=== PATIENT | female | born 1960 | race Hispanic/Latino ===

== ENCOUNTER 2017-12-21 14:03 | Emergency (ER) | payer SELFPAY ==
[~2017-12-21] VITALS: Ht 160 cm; Wt 68.0 kg
[2017-12-21] MEDS ORDERED: CYCLOBENZAPRINE HCL 10 MG TAB PO ONE (14:30)
[2017-12-21] MEDS ORDERED: TRAMADOL HCL 50 MG TAB PO ONE (14:30)
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
[2017-12-21 17:10] VITALS: BP 141/77
== END 2017-12-21 17:10 | disposition home or self-care (01) ==
LOC: ER 14:03
DX: S16.1XXA Strain of muscle, fascia and tendon at neck level, initial encounter (principal); S39.012A Strain of muscle, fascia and tendon of lower back, initial encounter; V43.52XA Car driver injured in collision with other type car in traffic accident, initial encounter; Y93.89 Activity, other specified; Y92.410 Unspecified street and highway as the place of occurrence of the external cause
CPT/HCPCS: 72040; 72100; 99284

== ENCOUNTER 2019-05-08 19:15 | Observation (INO) | payer SELFPAY ==
[~2019-05-08] VITALS: Ht 157.5 cm; Wt 72.1 kg
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
--- OUTSIDE RECORDS SUMMARY | 2019-05-08 19:18 | XMS REPORT | Encounter Summary ---
Author Organization Unknown Address [address] [place] [address] Phone [phone] Care Team Providers Care Whip Sawyer Name Role Phone Beto Hill MD 3 [phone] Reason for Visit Angina pectoris; Hypertensive disorder Instructions 1. Hypertensive disorder 2. Body mass index 25-29 - overweight learning about healthy weight Discussion Note continue amlodipine,will refer to cardiology Plan of Care Patient Instructions Please follow up with your doctor in . Follow up with any specialists that we discussed during your visit today. If you need help getting your medications filled, our [facility] can sync medication refills, deliver within a 10 mile radius, or [facility] overnight at no additional cost. Please watch for warning symptoms that may occur: *fever *redness/oozing at surgical site *shortness of breath *uncontrolled pain *unexpected weight gain/loss *high or low blood pressure *chest pain *confusion *any other health concerns Call us at if you experience these symptoms. In addition to these services our office offers home health care social worker services, home health options and chronic conditions management. Please reach out to us with your particular needs. Evening and Wednesday clinic hours are available if you have problems. If you have problems after hours, you can reach the [facility] physician social contact worker at . Reminders Provider Appointments None recorded. Lab None recorded. Referral None recorded. Procedures None recorded. Surgeries None recorded. Imaging None recorded. Medications Name Start Date Aleve 1 TAB EVERY DAY PRN Dulera 100 mcg-5 mcg/actuation HFA aerosol inhaler Inhale 2 puffs twice a day by inhalation route as needed. lisinopril 5 mg tablet Take 1 tablet every day by oral route. Nitrostat 0.[address] 1 tablet as needed by sublingual route. 06/22/2018 ProAir HFA 90 mcg/actuation aerosol inhaler INHALE 2 PUFFS BY MOUTH NEEDED Medications Administered None recorded. Vitals Height Weight BMI Blood Pressure 5 ft 3 in 161.3 lbs 28.6 kg/m2 (1) 130/80 mm[Hg] (2) 130/78 mm[Hg] Lab Results None recorded. Allergies Code Code System Name Reaction Severity Status Onset Aller-chlor Decongestant Active 164889 RxNorm Augmentin Active 946730 RxNorm Bactrim Active 825817 RxNorm Cipro Active 2670 RxNorm Codeine Active 252923 RxNorm Macrobid Hives Active Problems Name Status Onset Date Source Angina Pectoris Active 11/16/2016 Asthma Active 11/16/2016 Hypertensive Disorder Active 11/10/2018 Procedures Date Name Performed by Carpal Tunnel Surgery Information not available Oophorectomy Information not available Hernia Repair Information not available Partial Hysterectomy Information not available Vaccine List Vaccine Type influenza, injectable, quadrivalent 04/06/2017 influenza, unspecified formulation 04/05/2013 07/19/2014 Tdap 07/19/2008 Social History Smoking Status Never Smoker Past Encounters 11/10/2018 Hypertensive Disorder; Body Mass Index 25-29 - Overweight Raúl Urbina MD: [id number] [place] [address], Ph. History of Present Illness Note:f/u hospitalization 11/03- chest/arm neck pain/ vertigo evidently all investigations normal, prescribed amlodipine for htn,advised f/u pcp/organizational development manager<div> c/o intermittent L chest pain radiating to neck L arm</div > Review of Systems:ROS as noted in the HPI Review of Systems None recorded. Physical Exam Cardiology Exam Reported By: Patient Constitutional: General Appearance: well-developed, appears stated age. Level of Distress: comfortable Psychiatric: Mental Status: alert, normal affect. Orientation: oriented to time, place, and person. Insight: good judgment Eyes: Lids and Conjunctivae: non-injected, anicteric, no discharge, no pallor, no arcus senilis, no xanthelasma. Pupils: PERRLA Neck: Neck: supple, trachea midline, no masses, FROM. Carotid Arteries: bilateral normal upstroke, no bruits, no thrills. Cervical Lymph Nodes: non tender, not enlarged. Thyroid: not enlarged, non tender, no nodules Lungs: Respiratory Effort: unlabored. Chest Exam: normal curvature, no thoracic deformity, no chest wall tenderness. Percussion: resonant. Auscultation: clear, no wheezing, no rales, no rhonchi Cardiovascular: Precordial Exam: non displaced focal PMI, no heaves, no precordial thrills. Rate And Rhythm: regular. Heart Sounds: normal S1, physiologically split S2, no rub, no gallop, no click. Systolic Murmur: not heard. Diastolic Murmur: not heard. Extremities: no cyanosis, no edema, no peripheral signs of emboli Skin: Inspection and Palpation: warm and dry. Nails: no clubbing
[2019-05-08] MEDS ORDERED: PANTOPRAZOLE 40 MG 10ML VIAL IV ONE (19:49)
[2019-05-08] MEDS ORDERED: ONDANSETRON HCL INJ 2MG/ML 2ML 2 MG/ML VIAL IV ONE (19:49)
[2019-05-08] MEDS ORDERED: DICYCLOMINE HCL 20 MG/2 ML VIAL IM ONE (20:00)
[2019-05-08 20:02] LABS: BASOPHILS % 0.5 % (0.0-1.0); EOSINOPHILS # (AUTO) 0.1 (0.0-0.4); EOSINOPHILS % 1.1 % (0.0-6.0); HEMATOCRIT 41.8 % (34.2-44.1); HEMOGLOBIN 13.9 g/dL (12.0-16.0); LYMPHOCYTES # (AUTO) 2.6 (1.0-3.2); LYMPHOCYTES % 41.3 % (18.0-39.1); MEAN CORPUSCULAR HEMOGLOBIN 28.8 pg (28-32); MEAN CORPUSCULAR HGB CONC 33.3 g/dL (31-35); MEAN CORPUSCULAR VOLUME 86.5 fL (81-99); MONOCYTES # (AUTO) 0.6 (0.2-0.8); MONOCYTES % 8.9 % (4.4-11.3); PLATELET COUNT 284 x10e3/uL (140-360); RED BLOOD COUNT 4.83 x10e6/uL (3.6-5.1); RED CELL DISTRIBUTION WIDTH 13.2 % (11.7-14.4)
[2019-05-08 20:21] LABS: ALANINE AMINOTRANSFERASE 50 IU/L (0-55); ALBUMIN/GLOBULIN RATIO 1.1 (0.8-2.0); ALKALINE PHOSPHATASE 115 IU/L (40-150); ANION GAP 15.7 mmol/L (8-16); BLOOD UREA NITROGEN 8 mg/dL (7-26); BUN/CREATININE RATIO 10 (6-25); CALCIUM 10.2 mg/dL (8.4-10.2); CARBON DIOXIDE 24 mmol/L (22-29); CHLORIDE 104 mmol/L (98-107); CREATININE, SERUM 0.77 mg/dL (0.57-1.11); EST GLOMERULAR FILTRATION RATE > 60 ML/MIN (60-); GLUCOSE 92 mg/dL (74-118); POTASSIUM 3.7 mmol/L (3.5-5.1); SODIUM 140 mmol/L (136-145)
[2019-05-08 20:22] LABS: AMYLASE 39 U/L (25-125); LIPASE 11 U/L (8-78)
[2019-05-08 20:43] LABS: BILIRUBIN,URINE NEGATIVE (NEGATIVE); CLARITY,URINE CLEAR (CLEAR); COLOR,URINE YELLOW (YELLOW); KETONES,URINE NEGATIVE (NEGATIVE); LEUKOCYTE ESTERASE ,URINE NEGATIVE (NEGATIVE); NITRITE,URINE NEGATIVE (NEGATIVE); PROTEIN,URINE DIPSTICK NEGATIVE (NEGATIVE); URINE UROBILINOGEN 0.2 mg/dL (0.2 - 1)
[2019-05-08 21:02] LABS: EPITHELIAL CELLS,URINE RARE /LPF
--- NOTE | 2019-05-08 21:39 | Diagnostic Imaging Report ---
EXAM: Right Upper Quadrant Ultrasound with Doppler INDICATION: ruq pain COMPARISON: Abdominal CT report 05/04/2016 (images not available). TECHNIQUE: Transverse and longitudinal images of the right upper abdomen were obtained. Grayscale, color Doppler and spectral waveform analysis of the hepatic vasculature and splenic vein were performed. FINDINGS: Liver: Size: 15.1 cm in the right midclavicular line, normal Appearance: Normal echogenicity, smooth contour Mass: No focal masses Gallbladder: Stones/Sludge: None Wall: 0.6 cm, circumferentially thickened Appearance: No pericholecystic fluid or hydrops. Distended. Sonographic Triplett's Sign: Positive Bile Ducts: Intrahepatic Ducts: No dilatation Extrahepatic Ducts: Common bile duct measures 0.3 cm, no dilatation Pancreas: Visualized portions of the pancreatic head, neck and proximal body are normal. Right Kidney: Size: 10.4 cm Echogenicity: Normal Parenchymal thickness: Normal Collecting system: No hydronephrosis Stones: None Cyst/Mass: None Vessels: Main Portal Vein: Diameter: 0.7 cm, normal. Normal flow direction. Aorta: Visualized portions are normal Inferior Vena Cava: Visualized portions are normal Free Fluid: No ascites or pleural effusion IMPRESSION: The gallbladder is distended with wall thickening and positive sonographic Triplett's sign, concerning for acute cholecystitis, although a gallstone is not identified. In light of the abdominal CT report from 05/04/2016, gallbladder findings may reflect chronic cholecystitis. Signed by: Bruce Winslow DO on 05/08/2019 9:35 PM
[2019-05-08] MEDS ORDERED: CLONIDINE HCL 0.1 MG TAB PO ONE (22:45)
[2019-05-08] MEDS ORDERED: ONDANSETRON HCL INJ 2MG/ML 2ML 2 MG/ML VIAL IV PRN (23:00)
[2019-05-09] MEDS: SODIUM CHLORIDE 0.9% 1000ML 1,000 ML IV SCH ×3 (02:35→16:54)
[2019-05-09 05:44] LABS: BASOPHILS # (AUTO) 0.1 (0.0-0.1); BASOPHILS % 0.7 % (0.0-1.0); EOSINOPHILS # (AUTO) 0.2 (0.0-0.4); EOSINOPHILS % 2.3 % (0.0-6.0); HEMATOCRIT 39.7 % (34.2-44.1); HEMOGLOBIN 12.7 g/dL (12.0-16.0); LYMPHOCYTES # (AUTO) 3.5 (1.0-3.2); MEAN CORPUSCULAR HEMOGLOBIN 28.4 pg (28-32); MEAN CORPUSCULAR VOLUME 88.8 fL (81-99); MONOCYTES # (AUTO) 0.7 (0.2-0.8); MONOCYTES % 9.3 % (4.4-11.3); NEUTROPHILS % 40.3 % (38.7-80.0); PLATELET COUNT 250 x10e3/uL (140-360); RED BLOOD COUNT 4.47 x10e6/uL (3.6-5.1); RED CELL DISTRIBUTION WIDTH 13.2 % (11.7-14.4)
[2019-05-09 05:55] LABS: ALANINE AMINOTRANSFERASE 48 IU/L (0-55); ALBUMIN 3.5 g/dL (3.5-5.0); ALBUMIN/GLOBULIN RATIO 1.2 (0.8-2.0); ALKALINE PHOSPHATASE 100 IU/L (40-150); AMYLASE 33 U/L (25-125); ANION GAP 14.6 mmol/L (8-16); BLOOD UREA NITROGEN 8 mg/dL (7-26); BUN/CREATININE RATIO 10 (6-25); CALCIUM 9.4 mg/dL (8.4-10.2); CARBON DIOXIDE 24 mmol/L (22-29); CHLORIDE 106 mmol/L (98-107); CREATININE, SERUM 0.82 mg/dL (0.57-1.11); EST GLOMERULAR FILTRATION RATE > 60 ML/MIN (60-); GLUCOSE 90 mg/dL (74-118); LIPASE 14 U/L (8-78); POTASSIUM 3.6 mmol/L (3.5-5.1); SODIUM 141 mmol/L (136-145)
--- NOTE | 2019-05-09 13:40 | Diagnostic Imaging Report ---
Hepatobiliary Scan with Gallbladder Ejection Fraction Clinical information: R10.11 RUQ abdominal pain Technique: Following intravenous administration of 6.5 millicuries of Tc-99m mebrofenin, dynamic images of the abdomen in the anterior projection were obtained through 60 minutes. Sincalide (CCK analog) 1.5 micrograms was administered intravenously over 30 minutes with additional imaging for determination of gallbladder ejection fraction. Discussion: Perfusion of the liver is normal. Extraction of tracer by the liver parenchyma is normal. Tracer appears promptly within the biliary tract. The gallbladder begins to fill at 8 minutes post injection of tracer and fills adequately. Tracer is seen in the small bowel by 15 minutes. There is no contractile response by the gallbladder to the pharmacologic dose of sincalide. No emptying of the gallbladder occurs during the 30 minute infusion. Impression: 1. Filling of the gallbladder excludes acute cystic duct obstruction/acute cholecystitis. 2. The gallbladder ejection fraction is undefined as there is no emptying of the gallbladder during the infusion of sincalide. This absence of a contractile response to sincalide supports the clinical diagnosis of chronic cholecystitis/gallbladder dyskinesia. Signed by: Dr. Alisha Cobb M.D. on 05/09/2019 1:36 PM
[2019-05-09] MEDS: MORPHINE SULFATE 2 MG/ML SYR 1ML IV PRN ×3 (13:52→20:36)
[2019-05-09 16:15] VITALS: BP 155/85
[2019-05-09 17:07] VITALS: BP 155/85
[2019-05-09 17:19] VITALS: BP 155/85
--- NOTE | 2019-05-09 19:00 | NUR ---
RECEIVED PATIENT IN BEDSIDE SHIFT REPORT. PAIN REPORTED MANAGEABLE AT THIS TIME, NO PAIN MEDS REQUESTED. NO S&S OF DISTRESS NOTED. BED LOCKED IN LOWEST POSITION, SIDE RAILS UPX2, CALL LIGHT IN REACH.
[2019-05-09 20:00] VITALS: BP 137/79
[2019-05-09 20:43] VITALS: BP 137/79
[2019-05-10] VITALS (8 sets, daily range): BP systolic 119–157; BP diastolic 68–95
[2019-05-10] MEDS: SODIUM CHLORIDE 0.9% 1000ML 1,000 ML IV SCH ×4 (01:08→19:54)
[2019-05-10 05:22] LABS: BASOPHILS % 0.5 % (0.0-1.0); EOSINOPHILS # (AUTO) 0.1 (0.0-0.4); EOSINOPHILS % 1.2 % (0.0-6.0); HEMATOCRIT 40.4 % (34.2-44.1); LYMPHOCYTES % 33.5 % (18.0-39.1); MEAN CORPUSCULAR HEMOGLOBIN 28.6 pg (28-32); MEAN CORPUSCULAR HGB CONC 32.2 g/dL (31-35); MONOCYTES # (AUTO) 0.4 (0.2-0.8); MONOCYTES % 6.9 % (4.4-11.3); NEUTROPHILS # (AUTO) 3.4 (2.1-6.9); NEUTROPHILS % 57.6 % (38.7-80.0); PLATELET COUNT 211 x10e3/uL (140-360); RED BLOOD COUNT 4.54 x10e6/uL (3.6-5.1); RED CELL DISTRIBUTION WIDTH 13.2 % (11.7-14.4)
[2019-05-10 05:42] LABS: ANION GAP 11.9 mmol/L (8-16); BLOOD UREA NITROGEN 6 mg/dL (7-26); BUN/CREATININE RATIO 10 (6-25); CALCIUM 9.4 mg/dL (8.4-10.2); CARBON DIOXIDE 21 mmol/L (22-29); CHLORIDE 107 mmol/L (98-107); EST GLOMERULAR FILTRATION RATE > 60 ML/MIN (60-); GLUCOSE 86 mg/dL (74-118); PHOSPHORUS 3.5 MG/DL (2.3-4.7); POTASSIUM 3.9 mmol/L (3.5-5.1); SODIUM 136 mmol/L (136-145)
[2019-05-10 06:42] LABS: MAGNESIUM 1.9 MG/DL (1.3-2.1)
--- NOTE | 2019-05-10 13:00 | NUR ---
pt leaving for procedure
[2019-05-10] MEDS ORDERED: BUPIVACAINE HCL 0.5% INJ 30 ML VIAL INJ ONE (13:55)
[2019-05-10] MEDS ORDERED: ROCURONIUM BROMIDE 10 MG/ML 5ML VIAL ONE (13:59)
[2019-05-10] MEDS ORDERED: NEOSTIGMINE 5 MG/5ML SYR ONE (13:59)
[2019-05-10] MEDS ORDERED: KETOROLAC TROMETHAMINE 30 MG/ML VIAL ONE (13:59)
[2019-05-10] MEDS ORDERED: ONDANSETRON HCL INJ 2MG/ML 2ML 2 MG/ML VIAL ONE ×2 (13:59→14:55)
[2019-05-10] MEDS ORDERED: LIDOCAINE HCL 2% LOCAL INJ 5 ML SDV VIAL INJ ONE (13:59)
[2019-05-10] MEDS ORDERED: CEFAZOLIN SOD 1 GM VIAL ONE (13:59)
[2019-05-10] MEDS ORDERED: PROPOFOL IV EMULSION 10 MG/ML 20 ML VIAL ONE (13:59)
[2019-05-10] MEDS ORDERED: DEXAMETHASONE SOD PHOS INJ 4 MG/ML VIAL ONE (13:59)
[2019-05-10] MEDS ORDERED: GLYCOPYRROLATE INJ 1MG/ 5 ML SYR ONE (13:59)
[2019-05-10] MEDS ORDERED: SEVOFLURANE INHAL SOLN 250 ML PEN BTL ONE (13:59)
[2019-05-10] MEDS ORDERED: SUGAMMADEX SODIUM 200 MG/2 ML VIAL IV ONE (14:23)
[2019-05-10] MEDS ORDERED: ACETAMINOPHEN 325 MG TAB PO PRN (14:30)
[2019-05-10] MEDS ORDERED: ONDANSETRON HCL INJ 2MG/ML 2ML 2 MG/ML VIAL IV PRN (14:30)
[2019-05-10] MEDS ORDERED: HYDROMORPHONE 1MG/1ML INJ IV PRN (14:30)
[2019-05-10] MEDS ORDERED: FENTANYL CITRATE/PF 100MCG/2 ML INJ ONE ×2 (14:52→17:50)
[2019-05-10] MEDS ORDERED: PROMETHAZINE HCL (IM) 25 MG/ML VIAL ONE (15:09)
[2019-05-10] MEDS ORDERED: LABETALOL HCL 0 ML ONE (15:09)
[2019-05-10] MEDS ORDERED: MIDAZOLAM HCL 2 MG/2 ML VIAL ONE (17:50)
[2019-05-10] MEDS ORDERED: HYDRALAZINE HCL 20 MG/ML VIAL IV PRN (19:00)
--- NOTE | 2019-05-10 19:12 | Operative Report ---
DATE OF PROCEDURE: 05/10/2019 SURGEON: Poli Deras MD PREOPERATIVE DIAGNOSIS: Ynxuk-sd-luhskco cholecystitis. POSTOPERATIVE DIAGNOSIS: Hgytj-kh-rymwssq cholecystitis. PROCEDURE: Diagnostic laparoscopy, laparoscopic cholecystectomy. LUBRICATING MACHINE TENDER: None. ANESTHESIA: General endotracheal. INDICATIONS AND FINDINGS: The patient is a 58-year-old female, admitted to the hospital with complaints of severe epigastric right upper quadrant abdominal pain with associated bloating. Workup revealed abnormal HIDA scan with a 0% ejection fraction. At Surgery, the patient was found to have gallbladder was distended and mildly thickened, there were no stones, cystic duct was about 2 mm in diameter, common bile duct was about 5 mm in diameter. Liver, stomach, lower abdomen all appeared normal. TECHNIQUE: After adequate general endotracheal anesthesia, the patient in supine position, and the abdomen was prepped and draped in sterile fashion with ChloraPrep solution. Skin in the umbilicus was infiltrated with 0.5% Marcaine. Incision was made in the umbilicus. Abdominal wall was elevated and Veress needle was introduced. Pneumoperitoneum was then created. A 10 mm trocar and cannula was then passed through the umbilical wound. Laparoscopic camera was introduced. Initial laparoscopy revealed, gallbladder to be somewhat distended. Liver, stomach, lower abdomen all appeared normal. A 10 mm trocar and cannula was placed in epigastrium. Two 5 mm trocars and cannulas were placed in the right upper quadrant, these were placed under direct vision. Fundus of the gallbladder was grasped, retracted superiorly. There were some adhesions over the neck of the gallbladder involving omentum, which were lysed. The gallbladder was noted to be distended, somewhat thickened. Neck of the gallbladder was grasped, retracted laterally peritoneum over the neck of the gallbladder was incised, the gallbladder cystic duct junction was dissected free. Cystic artery was also dissected free. The neck of the gallbladder completely dissected free. The cystic artery was divided between hemoclips close to the gallbladder. Cystic duct was also divided between hemoclips with three clips being left on the common bile duct side. The gallbladder was dissected free from the liver using scissors and electrocautery. Once it was entirely free, it was placed into an Endopouch and brought through the epigastric cannula, there were no stones palpable. Gallbladder bed was inspected for hemostasis, which was seen to be adequate. It was irrigated with saline. All fluid aspirated and inspected once again for hemostasis, which was seen to be adequate. Instruments and cannulas were then removed. Pneumoperitoneum was evacuated. Wounds were then closed. Fascia in the umbilical and epigastric wound was closed with 0 Vicryl. Skin to all wounds closed with anna. Sterile dressings applied to each wound. The patient tolerated the procedure well. Estimated blood loss was 5 mL. There were no complications. All counts were correct and the patient was taken to the recovery room in satisfactory condition. MD BRAULIO FrenchG/MODL /[id number] cc: Geremias Wang MD
[2019-05-11] VITALS: BP 128/73
[2019-05-11] MEDS: TRAMADOL HCL 50 MG TAB PO PRN ×3 (01:00→15:41)
[2019-05-11 04:00] VITALS: BP 115/62
--- NOTE | 2019-05-11 04:24 | Consultation ---
DATE OF CONSULTATION: 05/09/2019 HISTORY OF PRESENT ILLNESS: The patient is a 58-year-old female who presents with complaints of right upper quadrant abdominal pain, she has had for couple of days. She says the pain radiates to her right back and flank. Evaluation in the emergency room with ultrasound revealed thickened gallbladder wall. DICTATION ENDS HERE. MD ISSA French/NATALY /[id number]
[2019-05-11 05:24] LABS: BASOPHILS % 0.2 % (0.0-1.0); HEMATOCRIT 36.4 % (34.2-44.1); HEMOGLOBIN 11.7 g/dL (12.0-16.0); LYMPHOCYTES # (AUTO) 1.3 (1.0-3.2); LYMPHOCYTES % 11.6 % (18.0-39.1); MEAN CORPUSCULAR HEMOGLOBIN 28.3 pg (28-32); MEAN CORPUSCULAR HGB CONC 32.1 g/dL (31-35); MEAN CORPUSCULAR VOLUME 88.1 fL (81-99); MONOCYTES # (AUTO) 0.7 (0.2-0.8); MONOCYTES % 6.4 % (4.4-11.3); NEUTROPHILS # (AUTO) 8.8 (2.1-6.9); NEUTROPHILS % 81.3 % (38.7-80.0); PLATELET COUNT 237 x10e3/uL (140-360); RED BLOOD COUNT 4.13 x10e6/uL (3.6-5.1); RED CELL DISTRIBUTION WIDTH 13.1 % (11.7-14.4)
[2019-05-11 05:40] LABS: ANION GAP 16.1 mmol/L (8-16); BLOOD UREA NITROGEN 8 mg/dL (7-26); BUN/CREATININE RATIO 10 (6-25); CALCIUM 9.4 mg/dL (8.4-10.2); CARBON DIOXIDE 23 mmol/L (22-29); CHLORIDE 107 mmol/L (98-107); CREATININE, SERUM 0.84 mg/dL (0.57-1.11); EST GLOMERULAR FILTRATION RATE > 60 ML/MIN (60-); GLUCOSE 131 mg/dL (74-118); MAGNESIUM 1.9 MG/DL (1.3-2.1); PHOSPHORUS 2.5 MG/DL (2.3-4.7); POTASSIUM 4.1 mmol/L (3.5-5.1); SODIUM 142 mmol/L (136-145)
--- NOTE | 2019-05-11 07:00 | NUR ---
Received patient lying in bed with eyes closed. Respiration even and unlabored without SOB. PIV to right AC, with NS at 125 ml/hr. Call light in reach.
[2019-05-11] MEDS ORDERED: FAMOTIDINE 20 MG TAB PO SCH (07:30)
[2019-05-11] MEDS ORDERED: ZOFRAN4 MG PO (07:53)
[2019-05-11] MEDS ORDERED: ULTRAM 50MG50 MG PO (07:53)
[2019-05-11 08:50] VITALS: BP 130/75
[2019-05-11 09:11] VITALS: BP 130/75
[2019-05-11 13:27] VITALS: BP 146/85
--- NOTE | 2019-05-11 15:37 | NUR ---
Patient cleared for discharge by Dr Antonio and [place].
--- NOTE | 2019-05-11 16:16 | NUR ---
Patient is to be d/c to home today. PIV to right AC discontinued, catheter tip intact, no bleeding noted. Respiration even and unlabored without SOB. Transported via wheelchair to private vehicle. All personal belongings are packed and taken by the patient's spouse.
[2019-05-11 16:27] VITALS: BP 156/83
--- NOTE | 2019-05-12 16:59 | Discharge Summary ---
ADMISSION DIAGNOSES: Biliary colic with chronic cholecystitis, diarrhea, asthma, mitral valve prolapse, and gallbladder dyskinesia. DISCHARGE DIAGNOSES: Biliary colic with chronic cholecystitis, diarrhea, asthma, mitral valve prolapse, and gallbladder dyskinesia, status post laparoscopic cholecystectomy. HISTORY: Asthma, mitral valve prolapse, and coronary spasm. SURGICAL HISTORY: Hysterectomy, hernia repair x2, right arm surgery. FAMILY HISTORY: The patient's sister and two of her uncles have cancer. The patient's mom had a CABG. SOCIAL HISTORY: Noncontributory. HOSPITAL COURSE: A 58-year-old female began having bloating and right upper quadrant abdominal pain that began Wednesday evening on 05/06, progressing to sharp pain. On Wednesday, she had shortness of breath due to the pain and then used her inhaler without improvement. She tried to drink a Coke, then chamomile tea, then to the shower and went to bed. Wednesday morning, the pain was still severe. She tried coffee and since the pain did not go away, she went to the ER. On admission, ultrasound of the gallbladder showed distention with wall thickening and positive sonographic Triplett sign, concerning for acute cholecystitis. The patient then had a HIDA scan that showed ejection fraction is undefined as there was no emptying of the gallbladder during the infusion, which supports the clinical diagnoses of chronic cholecystitis and gallbladder dyskinesia. The patient then had a laparoscopic cholecystectomy on 05/10/2019. The patient tolerated the surgery well and diet was advanced, and she is passing gas. She will discharge home with a prescription for Zofran and tramadol. The patient understands discharge instructions and agrees to plan. She was instructed to follow up with primary care in 1 to [address] Deras or Dr. Antonio for staple removal. The patient understands discharge instructions and agrees to plan. Vital signs are stable. The patient is afebrile. Dictated by [place] NP MD NEDA Frank/MODErika /[id number]
== END 2019-05-11 16:16 | disposition home or self-care (01) ==
LOC: ER 19:15 → ERHOLD 22:58 → IMCU 05-09 16:00
PROVIDERS: ADMIT Internal Medicine; ATTEND Internal Medicine
DX: K80.46 Calculus of bile duct with acute and chronic cholecystitis without obstruction (principal); I34.1 Nonrheumatic mitral (valve) prolapse; J45.909 Unspecified asthma, uncomplicated; Z82.49 Family history of ischemic heart disease and other diseases of the circulatory system; Z80.2 Family history of malignant neoplasm of other respiratory and intrathoracic organs; Z80.8 Family history of malignant neoplasm of other organs or systems; Z80.0 Family history of malignant neoplasm of digestive organs; R19.7 Diarrhea, unspecified; K82.8 Other specified diseases of gallbladder; R00.1 Bradycardia, unspecified; Z88.1 Allergy status to other antibiotic agents; Z88.5 Allergy status to narcotic agent; Z88.2 Allergy status to sulfonamides; Z88.8 Allergy status to other drugs, medicaments and biological substances
CPT/HCPCS: 36415 ×4; 47562; 76705; 78227; 80048 ×2; 80053 ×2; 81001; 82150 ×2; 83690 ×2; 83735 ×2; 84100 ×2; 85025 ×4; 88304; 97161; 99284; A9537; C9113; G0378 ×4; J0500; J0690; J1100; J1170; J1885; J2001; J2250; J2270; J2405 ×3; J2550; J2704; J3010; J3490; J7030 ×2

== ENCOUNTER → 2022-02-17 | Outpatient (CLI) | payer SELFPAY ==
[~2022-02-17] MED LIST: IOPAMIDOL 370 MG/ML 100 ML INFUS..BTL INJ ONE; METOPROLOL TARTRATE INJ 1 MG/ML VIAL ONE; NITROGLYCERIN 0.4 MG SUBL ONE; SODIUM CHLORIDE 0.9% 100 ML ONE; ULTRAM 50MG50 MG PO; ZOFRAN4 MG PO
[2022-02-17 08:43] LABS: CREATININE, SERUM 0.84 mg/dL (0.57-1.11)
== END ==
LOC: CT 08:02
PROVIDERS: ATTEND Internal Medicine Interventional Cardiology
DX: I20.9 Angina pectoris, unspecified (principal)
CPT/HCPCS: 36415; 75574; 82565; 84520; J7050; Q9967